=== PATIENT | female | born 1970 | race Caucasian/White ===

== ENCOUNTER 2024-03-12 11:52 | Inpatient (IN) | payer OTHER ==
[~2024-03-12] VITALS: Ht 160 cm; Wt 80.7 kg
[~2024-03-12 11:52] MED LIST: DYR50 PO; ENAL20TA99 PO; METO100T99 PO; WATER PILL
[2024-03-12 12:06] VITALS: BP 120/73; PULSE 86; RESP 16; TEMP 98.1; O2SAT 100
[2024-03-12 12:50] LABS: LYMPHOCYTES # (AUTO) 1.5 K/uL (2.5-16.5); RED BLOOD CELL COUNT(AUTO) 4.07 MIL/uL (4.20-5.40)
[2024-03-12 12:59] LABS: BASOPHILS % (AUTO) 0.7 % (0.0-2.0); EOSINOPHILS # (AUTO) 0.3 K/uL (0-0.4); LYMPHOCYTES % (AUTO) 26.4 % (20.5-51.1); MEAN CORPUSCULAR HEMOGLOBIN 17 pg (27-31); MEAN CORPUSCULAR HGB CONC 29 g/dL (33-37); MONOCYTES # (AUTO) 0.2 K/uL (0.8-1.0); MONOCYTES % (AUTO) 4.4 % (1.7-9.3); NEUTROPHILS # (AUTO) 3.5 K/uL (1.8-7.7); NEUTROPHILS % (AUTO) 63.5 % (42.2-75.2); PLATELET COUNT (AUTO) 484 K/uL (140-450); RED CELL DISTRIBUTION WIDTH 18.8 % (11.6-13.7); WHITE BLOOD COUNT (AUTO) 5.6 K/uL (4.8-10.8)
[2024-03-12 13:00] LABS: ANION GAP 15.9 (8-16); CALCIUM 8.7 mg/dL (8.5-10.1); CARBON DIOXIDE 23.6 mmol/L (21-32); CREATININE 0.8 mg/dL (0.6-1.3); POTASSIUM 3.5 mmol/L (3.5-5.1)
[2024-03-12] MEDS: ONDANSETRON 4 MG/2 ML VIAL IVP ONE (13:05)
[2024-03-12] MEDS: MORPHINE SULFATE 2 MG/ML SYR IVP ONE ×2 (13:06→22:22)
[2024-03-12 13:09] LABS: ALANINE AMINOTRANSFERASE 14 U/L (12-78); ALBUMIN 3.6 g/dL (3.4-5.0); ALKALINE PHOSPHATASE 112 U/L (50-136); ASPARTATE AMINOTRANSFERASE 11 U/L (15-37); BILIRUBIN,DIRECT 0.1 mg/dL (0.0-0.3); LIPASE 9 U/L (16-77); TOTAL BILIRUBIN 0.4 mg/dL (0.0-1.0); TOTAL PROTEIN, SERUM 8.2 g/dL (6.4-8.2)
[2024-03-12 13:18] LABS: INR 0.92 (0.8-1.2); PARTIAL THROMBOPLASTIN TIME 22.4 secs (22-35.6); PROTHROMBIN TIME 9.7 secs (10.8-13.4)
[2024-03-12] MEDS ORDERED: hydrALAZINE 20 MG/ML VIAL IVP PRN (16:20)
[2024-03-12] MEDS: NACL 0.9% 1,000 ML IV SCH (16:20)
[2024-03-12] MEDS ORDERED: LORazepam 1 MG TAB PO PRN (16:20)
[2024-03-12] MEDS ORDERED: OXYC30TA2 PO (16:30)
[2024-03-12] MEDS ORDERED: HYDR30CR7 TP (16:30)
[2024-03-12] MEDS ORDERED: METH-1878 PO (16:30)
[2024-03-12] MEDS ORDERED: LOSA100T52 PO (16:30)
[2024-03-12] MEDS ORDERED: BEN10 PO (16:30)
[2024-03-12] MEDS ORDERED: EMPA25TA PO (16:30)
[2024-03-12] MEDS ORDERED: PANT40EC56 PO (16:30)
[2024-03-12] MEDS ORDERED: SERT-164 PO (16:30)
[2024-03-12] MEDS ORDERED: TIZA-313 PO (16:30)
[2024-03-12] MEDS: ACETAMINOPHEN EXTRA STRENGTH 500 MG TAB PO SCH (18:21)
[2024-03-12 20:00] VITALS: BP 92/63; PULSE 70; RESP 18; TEMP 97.6; O2SAT 96
[2024-03-12 21:00] VITALS: RESP 18; O2SAT 96
[2024-03-12] MEDS: METOPROLOL 50 MG TAB PO SCH (21:00)
[2024-03-12] MEDS: diphenhydrAMINE 50 MG/ML VIAL IVP ONE (22:21)
[2024-03-13 00:52] LABS: EOSINOPHILS # (AUTO) 0.2 K/uL (0-0.4); EOSINOPHILS % (AUTO) 4.4 % (0.0-4.0); HEMATOCRIT 24.8 % (36-48); HEMOGLOBIN 7.5 g/dL (12.0-16.0); LYMPHOCYTES # (AUTO) 1.3 K/uL (2.5-16.5); LYMPHOCYTES % (AUTO) 29.8 % (20.5-51.1); MEAN CORPUSCULAR HEMOGLOBIN 19 pg (27-31); MEAN CORPUSCULAR HGB CONC 30 g/dL (33-37); MEAN CORPUSCULAR VOLUME 63.3 fL (80-94); MONOCYTES # (AUTO) 0.3 K/uL (0.8-1.0); MONOCYTES % (AUTO) 6.2 % (1.7-9.3); NEUTROPHILS # (AUTO) 2.6 K/uL (1.8-7.7); NEUTROPHILS % (AUTO) 58.6 % (42.2-75.2); PLATELET COUNT (AUTO) 369 K/uL (140-450); RED BLOOD CELL COUNT(AUTO) 3.92 MIL/uL (4.20-5.40); RED CELL DISTRIBUTION WIDTH 23.1 % (11.6-13.7); WHITE BLOOD COUNT (AUTO) 4.5 K/uL (4.8-10.8)
[2024-03-13 06:36] LABS: BASOPHILS % (AUTO) 0.6 % (0.0-2.0); EOSINOPHILS # (AUTO) 0.2 K/uL (0-0.4); EOSINOPHILS % (AUTO) 4.3 % (0.0-4.0); HEMATOCRIT 24.1 % (36-48); HEMOGLOBIN 7.4 g/dL (12.0-16.0); LYMPHOCYTES # (AUTO) 1.5 K/uL (2.5-16.5); LYMPHOCYTES % (AUTO) 31.1 % (20.5-51.1); MEAN CORPUSCULAR HEMOGLOBIN 19 pg (27-31); MEAN CORPUSCULAR HGB CONC 31 g/dL (33-37); MEAN CORPUSCULAR VOLUME 63.3 fL (80-94); MONOCYTES # (AUTO) 0.2 K/uL (0.8-1.0); NEUTROPHILS # (AUTO) 2.9 K/uL (1.8-7.7); PLATELET COUNT (AUTO) 346 K/uL (140-450); RED CELL DISTRIBUTION WIDTH 23.4 % (11.6-13.7); WHITE BLOOD COUNT (AUTO) 4.8 K/uL (4.8-10.8)
[2024-03-13] MEDS: HYDROcodone/APAP 5/325 MG 1 TAB TAB PO PRN (06:38)
[2024-03-13 07:20] LABS: ANION GAP 12.5 (8-16); CALCIUM 8.1 mg/dL (8.5-10.1); CARBON DIOXIDE 25.2 mmol/L (21-32); CREATININE 0.7 mg/dL (0.6-1.3); POTASSIUM 3.7 mmol/L (3.5-5.1); TOTAL BILIRUBIN 0.5 mg/dL (0.0-1.0); TOTAL PROTEIN, SERUM 6.8 g/dL (6.4-8.2)
[2024-03-13 07:38] VITALS: BP 106/67; PULSE 70; RESP 18; TEMP 96.5; O2SAT 99
[2024-03-13] MEDS: PANTOPRAZOLE 40 MG INJ VIAL IVP SCH (10:39)
[2024-03-13] MEDS: ONDANSETRON 4 MG/2 ML VIAL IVP PRN (11:22)
[2024-03-13] MEDS: DOCUSATE SODIUM 100 MG GELCAP PO SCH (11:22)
[2024-03-13 12:00] VITALS: BP 132/81; PULSE 82; RESP 18; TEMP 98.6; O2SAT 98
[2024-03-13] MEDS: ENALAPRIL 10 MG TAB PO SCH (12:43)
[2024-03-13] MEDS ORDERED: DEXTROSE 50% 50 ML SYR IVP PRN (15:35)
[2024-03-13 16:00] VITALS: BP 116/74; PULSE 76; RESP 18; TEMP 98.4; O2SAT 98
[2024-03-13] MEDS: POTASSIUM CHL 30 MEQ/ D5-1/2NS 1,000 ML IV SCH (16:10)
[2024-03-13] MEDS: LACTULOSE 20 GM/30 ML UDC PO SCH ×2 (17:00→17:18)
[2024-03-13] MEDS: BLOOD GLUCOSE MONITORING 1 DEV DEV FS SCH (17:03)
[2024-03-13] MEDS: POLYETHYLENE GLYCOL 17 GM/PKT PO SCH (17:34)
[2024-03-13] MEDS: SUPREP BOWEL PREP KIT 354 ML SOLN.RECON PO SCH (17:35)
[2024-03-13] MEDS: MORPHINE SULFATE 2 MG/ML SYR IVP PRN (17:44)
[2024-03-13] MEDS: LUBIPROSTONE 24 MCG CAPSULE PO SCH (17:55)
[2024-03-13] MEDS: ERYTHROMYCIN 250 MG in NACL 0.9% 100 ML IV SCH (17:58)
[2024-03-13 20:00] VITALS: BP 151/89; PULSE 80; RESP 18; TEMP 98; O2SAT 97
[2024-03-13] MEDS: INSULIN LISPRO SLIDING SCALE 100 UNITS/ML VIAL SUBQ PRN (20:59)
[2024-03-13] MEDS ORDERED: POLYETHYLENE GLYCOL 17 GM/PKT PO SCH (21:00)
[2024-03-13] MEDS: SODIUM FERRIC GLUCONATE 125 MG in NACL 0.9% 100 ML IV SCH (21:33)
[2024-03-14 04:00] VITALS: BP 114/79; PULSE 81; RESP 19; TEMP 96.5; O2SAT 99
[2024-03-14 05:24] LABS: BASOPHILS % (AUTO) 0.3 % (0.0-2.0); EOSINOPHILS % (AUTO) 0.2 % (0.0-4.0); HEMATOCRIT 26.6 % (36-48); HEMOGLOBIN 7.9 g/dL (12.0-16.0); LYMPHOCYTES # (AUTO) 0.6 K/uL (2.5-16.5); LYMPHOCYTES % (AUTO) 12.1 % (20.5-51.1); MEAN CORPUSCULAR HEMOGLOBIN 19 pg (27-31); MEAN CORPUSCULAR HGB CONC 30 g/dL (33-37); MEAN CORPUSCULAR VOLUME 64.3 fL (80-94); MONOCYTES # (AUTO) 0.2 K/uL (0.8-1.0); MONOCYTES % (AUTO) 4.5 % (1.7-9.3); NEUTROPHILS # (AUTO) 4.4 K/uL (1.8-7.7); NEUTROPHILS % (AUTO) 82.9 % (42.2-75.2); PLATELET COUNT (AUTO) 416 K/uL (140-450); RED BLOOD CELL COUNT(AUTO) 4.13 MIL/uL (4.20-5.40); RED CELL DISTRIBUTION WIDTH 23.7 % (11.6-13.7); WHITE BLOOD COUNT (AUTO) 5.3 K/uL (4.8-10.8)
[2024-03-14 06:17] LABS: ALBUMIN 3.4 g/dL (3.4-5.0); ANION GAP 15.1 (8-16); CALCIUM 8.6 mg/dL (8.5-10.1); CARBON DIOXIDE 25.1 mmol/L (21-32); CREATININE 0.8 mg/dL (0.6-1.3); POTASSIUM 4.2 mmol/L (3.5-5.1); TOTAL BILIRUBIN 0.6 mg/dL (0.0-1.0); TOTAL PROTEIN, SERUM 7.6 g/dL (6.4-8.2)
[2024-03-14 08:00] VITALS: BP 146/87; PULSE 52; RESP 16; TEMP 97; O2SAT 94
[2024-03-14] MEDS: SENNA 8.6 MG TAB PO SCH ×2 (15:08→21:35)
[2024-03-14] MEDS: SUPREP BOWEL PREP KIT 354 ML SOLN.RECON PO SCH (15:10)
[2024-03-14 16:00] VITALS: BP 96/61; PULSE 63; RESP 18; TEMP 97.9; O2SAT 96
[2024-03-14 20:00] VITALS: BP 113/72; PULSE 52; PULSE 65; RESP 18; TEMP 97.7; O2SAT 100
[2024-03-14] MEDS: ZOLPIDEM 5 MG TAB PO PRN (21:35)
[2024-03-15 04:20] VITALS: BP 121/70; PULSE 70; RESP 18; TEMP 96.6; O2SAT 97
[2024-03-15 05:48] LABS: BASOPHILS % (AUTO) 0.5 % (0.0-2.0); EOSINOPHILS # (AUTO) 0.1 K/uL (0-0.4); EOSINOPHILS % (AUTO) 2.3 % (0.0-4.0); HEMATOCRIT 23.5 % (36-48); HEMOGLOBIN 7.1 g/dL (12.0-16.0); LYMPHOCYTES # (AUTO) 1.7 K/uL (2.5-16.5); LYMPHOCYTES % (AUTO) 30.2 % (20.5-51.1); MEAN CORPUSCULAR HEMOGLOBIN 19 pg (27-31); MEAN CORPUSCULAR HGB CONC 30 g/dL (33-37); MONOCYTES # (AUTO) 0.4 K/uL (0.8-1.0); MONOCYTES % (AUTO) 6.3 % (1.7-9.3); NEUTROPHILS # (AUTO) 3.4 K/uL (1.8-7.7); NEUTROPHILS % (AUTO) 60.7 % (42.2-75.2); PLATELET COUNT (AUTO) 344 K/uL (140-450); RED BLOOD CELL COUNT(AUTO) 3.67 MIL/uL (4.20-5.40); RED CELL DISTRIBUTION WIDTH 23.5 % (11.6-13.7); WHITE BLOOD COUNT (AUTO) 5.5 K/uL (4.8-10.8)
[2024-03-15 06:13] LABS: ANION GAP 13.7 (8-16); CALCIUM 8.1 mg/dL (8.5-10.1); CARBON DIOXIDE 24.7 mmol/L (21-32); CREATININE 0.6 mg/dL (0.6-1.3); TOTAL BILIRUBIN 0.4 mg/dL (0.0-1.0); TOTAL PROTEIN, SERUM 6.5 g/dL (6.4-8.2)
[2024-03-15 06:16] LABS: POTASSIUM 2.4 mmol/L (3.5-5.1)
[2024-03-15] MEDS ORDERED: POTASSIUM CHLORIDE 80 MEQ, LIDOCAINE 1% 25 MG in NACL 0.9% 250 ML IV ONE (06:45)
[2024-03-15 08:00] VITALS: BP 108/70; PULSE 67; RESP 15; TEMP 97.2; O2SAT 97
[2024-03-15] MEDS: POTASSIUM CHLORIDE 40 MEQ, LIDOCAINE 1% 25 MG in NACL 0.9% 250 ML IV SCH (09:00)
[2024-03-15] MEDS: MIDAZOLAM 5 MG/5 ML VIAL ONE ×2 (12:35→12:36)
[2024-03-15] MEDS: diphenhydrAMINE 50 MG/ML VIAL ONE (12:35)
[2024-03-15] MEDS: fentaNYL citrate 0.05 MG/ML VIAL ONE ×2 (12:35→13:19)
[2024-03-15] MEDS: MIDAZOLAM 2 MG/2 ML VIAL IVP ONE (13:03)
[2024-03-15] MEDS: fentaNYL citrate 0.05 MG/ML VIAL IVP ONE (13:04)
[2024-03-15] MEDS: LACTULOSE 20 GM/30 ML UDC PO SCH (13:55)
[2024-03-15] MEDS: POTASSIUM CHLORIDE 20% 40 MEQ/15 ML UDC GT SCH (15:14)
[2024-03-15 16:00] VITALS: BP 98/60; PULSE 55; RESP 16; TEMP 97.3; O2SAT 96
[2024-03-15] MEDS: FERROUS GLUCONATE 324 MG TAB PO SCH (18:16)
[2024-03-15 20:00] VITALS: PULSE 77; RESP 18; O2SAT 93
[2024-03-16] VITALS: BP 110/72; PULSE 66; RESP 18; TEMP 97.4; O2SAT 93
[2024-03-16 05:14] LABS: BASOPHILS % (AUTO) 0.5 % (0.0-2.0); EOSINOPHILS # (AUTO) 0.2 K/uL (0-0.4); EOSINOPHILS % (AUTO) 3.6 % (0.0-4.0); HEMATOCRIT 24.6 % (36-48); HEMOGLOBIN 7.4 g/dL (12.0-16.0); LYMPHOCYTES # (AUTO) 1.6 K/uL (2.5-16.5); LYMPHOCYTES % (AUTO) 30.4 % (20.5-51.1); MEAN CORPUSCULAR HEMOGLOBIN 19 pg (27-31); MEAN CORPUSCULAR HGB CONC 30 g/dL (33-37); MEAN CORPUSCULAR VOLUME 64.3 fL (80-94); MONOCYTES # (AUTO) 0.4 K/uL (0.8-1.0); MONOCYTES % (AUTO) 6.6 % (1.7-9.3); NEUTROPHILS # (AUTO) 3.1 K/uL (1.8-7.7); NEUTROPHILS % (AUTO) 58.9 % (42.2-75.2); PLATELET COUNT (AUTO) 335 K/uL (140-450); RED BLOOD CELL COUNT(AUTO) 3.83 MIL/uL (4.20-5.40); RED CELL DISTRIBUTION WIDTH 23.5 % (11.6-13.7); WHITE BLOOD COUNT (AUTO) 5.3 K/uL (4.8-10.8)
[2024-03-16 05:45] LABS: ANION GAP 12.8 (8-16); CALCIUM 8.4 mg/dL (8.5-10.1); CARBON DIOXIDE 24.9 mmol/L (21-32); CREATININE 0.7 mg/dL (0.6-1.3); POTASSIUM 3.7 mmol/L (3.5-5.1); TOTAL BILIRUBIN 0.4 mg/dL (0.0-1.0); TOTAL PROTEIN, SERUM 6.7 g/dL (6.4-8.2)
[2024-03-16 08:00] VITALS: BP 122/69; PULSE 61; RESP 16; RESP 18; TEMP 97.8; O2SAT 93; O2SAT 97
[2024-03-16] MEDS: MINERAL OIL 30 ML UDC PO SCH (09:00)
[2024-03-16] MEDS ORDERED: FERR324T11 PO (13:16)
[2024-03-16] MEDS ORDERED: SENN-72 PO (13:16)
[2024-03-16 13:21] VITALS: BP 122/69; PULSE 61; RESP 16; TEMP 97.8
[2024-03-16 16:00] VITALS: BP 115/50; PULSE 67; RESP 18; TEMP 97.1; O2SAT 98
== END 2024-03-16 18:15 | disposition home or self-care (01) | DRG 348 ==
LOC: MED 11:52 → MTU 16:16
PROVIDERS: ADMIT Student in an Organized Health Care Education/Training Program; ATTEND Student in an Organized Health Care Education/Training Program
PROC: 30233N1 Transfusion of Nonautologous Red Blood Cells into Peripheral Vein, Percutaneous Approach (ICD-10-PCS; principal; 2024-03-12)
PROC: 0DB98ZX Excision of Duodenum, Via Natural or Artificial Opening Endoscopic, Diagnostic (ICD-10-PCS; 2024-03-15)
PROC: 06LY8CC Occlusion of Hemorrhoidal Plexus with Extraluminal Device, Via Natural or Artificial Opening Endoscopic (ICD-10-PCS; 2024-03-15 12:30)
DX: K64.8 Other hemorrhoids (principal); K90.9 Intestinal malabsorption, unspecified; Q43.8 Other specified congenital malformations of intestine; I10 Essential (primary) hypertension; D50.0 Iron deficiency anemia secondary to blood loss (chronic); G89.4 Chronic pain syndrome; E87.6 Hypokalemia; T40.605A Adverse effect of unspecified narcotics, initial encounter; Y92.89 Other specified places as the place of occurrence of the external cause; Z79.891 Long term (current) use of opiate analgesic; Z82.49 Family history of ischemic heart disease and other diseases of the circulatory system; Z83.3 Family history of diabetes mellitus; Z90.710 Acquired absence of both cervix and uterus
CPT/HCPCS: 36415; 36430; 80048; 80053; 80076; 82948; 83036; 83690; 84484; 85025; 85610; 85730; 86886; 86900; 86901; 86920; 87081; 88305; 93005; 96374; 96375; 99285; C9113; J1200; J1364; J1815; J2001; J2250; J2270; J2405; J2916; J3010; J3480; J7030; P9016; Q0163